=== PATIENT | female | born 1975 | race Two or more races ===

== ENCOUNTER 2020-09-04 20:21 | Emergency (ER) | payer OTHER ==
[2020-09-04] MEDS ORDERED: Dextrose 5%-Lactated Ringers 1,000 ML IV SCH (20:30)
[2020-09-04 21:03] LABS: BLOOD UREA NITROGEN,BUN 14 mg/dL (7.0-18.0); CARBON DIOXIDE,CO2 22.3 mmol/L (21.0-32.0); CHLORIDE,CL 105 mmol/L (98-107); GLUCOSE RANDOM 183 mg/dL (74-106); LIPASE 200 U/L (73-393); POTASSIUM,K 4.3 mmol/L (3.5-5.1); SODIUM,NA 140 mmol/L (136-145)
--- NOTE | 2020-09-04 23:04 | CR ---
For Patients: As a result of the Cures Act, medical imaging exams and procedure reports are released immediately into your electronic medical record. You may view this report before your referring provider. If you have questions, please contact your health care provider. INDICATION: Shortness of breath TECHNIQUE: Chest radiograph 1 view COMPARISON: None FINDINGS: Mediastinum: The mediastinum is normal in appearance. The heart silhouette is normal in size and morphology. Lung: Both lungs are unremarkable in appearance. No sign of pleural effusion seen. No pneumothorax is identified. Bone and Soft tissue: Unremarkable for age. IMPRESSION: 1. No acute cardiopulmonary disease is seen. Dictated by: Narendra Quintana MD @ 09/04/2020 23:03:18 (Electronically Signed)
--- NOTE | 2020-09-05 00:42 | EDM.PDOC ---
ED HPI GENERAL MEDICAL PROBLEM - General Chief Complaint: Neuro Symptoms/Deficits Stated Complaint: STROKE CODE Time Seen by Provider: 09/04/20 20:23 - History of Present Illness INITIAL COMMENTS - FREE TEXT/NARRATIVE: CHIEF COMPLAINT(S): Altered mental status HISTORY OF PRESENT ILLNESS: This is a 45-year-old woman with a past medical history of Bianca's granulomatosis who presents to the emergency department with a chief complaint of altered mental status. EMS: Per EMS they received a call to turkey picker this young lady after she was altered. They stated that when they got to the home that the home was hot and when they arrived she was clenched with her hands and legs and shaking. They state that she was alert at this time and did not look like a seizure. They stated there may have been some right upper and lower extremity weakness. They state that she has been vomiting since 1 PM and she had some sinus bradycardia episodes in route. Otherwise vitals were normal. The patient states that she is currently on a new medication called azathioprine that was started by her surgical technology instructor. She states that this was started approximately 1 week ago. She tried it for 2 days and every time she tried that she gets nausea, vomiting, and diarrhea. She states that she stopped taking it and then attempted to take it again yesterday where she again had nausea, vomiting and diarrhea. She states that when she does not take the medication she does not have any symptoms. She denies any history of hypertension, hyperlipidemia, CAD, CHF. She denied trouble walking, speaking, or swallowing. She denies any head injury or loss of consciousness. She denies any other symptoms at all. REVIEW OF SYSTEMS: Constitutional: Denies fever, chills. Eyes: Denies eye pain Ears, Nose, Mouth, & Throat: Denies earache Cardiovascular: Denies chest pain Respiratory: Denies shortness of breath Gastrointestinal: Positive for nausea, vomiting, diarrhea. Denies hematochezia, hematemesis, bilious emesis, abdominal pain Genitourinary: Denies hematuria, dysuria, vaginal bleeding, vaginal discharge Skin:Denies a rash Neurological: Denies blurred vision, head injury, loss of consciousness, numbness, tingling, weakness, trouble walking, trouble speaking, trouble swallowing Psychiatric: Denies depression PAST MEDICAL HISTORY: As per history of present illness and as reviewed below otherwise noncontributory. SURGICAL HISTORY: As per history of present illness and as reviewed below otherwise noncontributory. SOCIAL HISTORY: As per history of present illness and as reviewed below otherwise noncontributory. FAMILY HISTORY: As per history of present illness and as reviewed below otherwise noncontributory. EXAMINATION OF ORGAN SYSTEMS/BODY AREAS: VITALS: Blood pressure was 106/70, heart rate 68, respiratory rate 16 with oxygen saturation of 100% on room air. Temperature 36.9 GENERAL: The patient is well-nourished, well-developed, in no acute distress. HEAD: Normocephalic, atraumatic. EYES: EOMs intact. PERRL. ENT. External ears WNL. Nares patent. Oropharynx is clear with no erythema or exudate. No uvular or tongue swelling. Tongue protrudes midline. No uvular swelling. NECK: Supple, no masses. Trachea is midline. No stridor. LUNGS: No tachypnea or intercostal retractions. Clear to auscultation bilaterally, no wheezing, no rales, no stridor, no rhonchi. CARDIOVASCULAR: Regular rate and rhythm with S1-S2. No murmur, rubs or gallops. No edema. No JVD. ABDOMEN: Soft, non-distended, non-tender. Bowel sounds present in all 4 quadrants. No rebound tenderness, guarding, or peritoneal signs. MUSCULOSKELETAL: No deformity. Patient is moving all 4 limbs spontaneously. Patient is yennifer her upper and lower extremities bilaterally and shaking. Visually it appears like a dystonic reaction NEUROLOGICAL: Alert and oriented x 3. No focal neurological deficits noted. NIH of 0. Facies are symmetrical. Negative sellar signs. SKIN: No rashes, or pallor. No signs of injury. MEDICAL DECISION MAKING AND COURSE IN THE ED WITH INTERPRETATION/REVIEW OF DIAGNOSTIC STUDIES: This is a 45-year-old woman who presents to the emergency department via EMS initially as a stroke code. Immediately upon entering the resuscitation room the patient was disrobed, placed on continuous cardiac monitoring, and IV access was established by nursing. Patient is able to speak thus displaying a patent airway, breath sounds are equal bilaterally, and patient has palpable pulses in all 4 extremities. NIH was 0 patient had contractions of her upper and lower body which appeared like a dystonic reaction. She had no focal deficits to suggest a stroke at all. Therefore I canceled the stroke code. In route the ambulance provided her with Zofran and Benadryl. We did obtain an EKG which did not reveal any acute signs of ischemia. CT head or CT are not indicated at this time. We will obtain laboratory analysis including CBC, CMP, CRP, ESR, lactic acid, lipase, hCG, and urinalysis. We will obtain a chest x-ray. By the time my assessment has been completed the patient was sitting there comfortably and speaking in full sentences and was no longer shaking or yennifer. EKG was obtained which did not reveal any acute signs of ischemia. On review of Azothioprine side effects there are small amount of individuals who have hypersensitivity to this medication which results in severe nausea, vomiting and diarrhea. This is thought to be secondary to some type of allergic reaction. I contacted [facility] in [place] and spoke with Dr. Fan and discussed the case with him. He states that the medication is not the cause of the nausea vomiting or diarrhea. He recommended obtaining ESR and CRP to evaluate if there is any inflammatory markers for vasculitis. He did recommend CT head and CTA as he states that "I am not there so I do not see the patient" I did discuss my discussion with the patient and her at bedside. At this time the patient is altered, does not have any fever, has no focal neurological deficits, no neck stiffness, no meningeal signs is alert and oriented x4.in discussion with the patient at this time I do not believe CT head or CTA are indicated and definitely not a lumbar puncture. We will obtain inflammatory markers to evaluate for vasculitis or signs of vasculitis. The patient is amenable to this plan. Laboratory: CBC reveals a leukocytosis of 19.38 with neutrophilic predominance and thrombocytosis with a platelet count of 433. CMP reveals hyperglycemia at 193 otherwise unremarkable. ESR and CRP are normal. Lipase is normal. hCG is negative. Lactic acidosis of 3.0. Urinalysis was a clean catch and was negative for leukocyte esterase, negative for nitrites, and negative for blood. Ketones interpretation: Ketonuria The radiological images were viewed by myself along with reading the report from the radiologist. Chest x-ray did not reveal an acute cardiopulmonary process. On continued reevaluation the patient's vitals continue to remain stable and she is alert and oriented x4 without any focal deficits. I did discuss with her that I would like to obtain a repeat lactic acid given that it was mildly elevated. She was amenable to this plan. 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 Lactic acid repeat was 1.7. The patient was ambulatory in the emergency department and more ready to be discharged. The patient requested a different surgical technology instructor. I did discuss with her at this time that I do not know any but I recommend following up with her primary care physician to get a referral to a different surgical technology instructor. Given that she is having a reaction to this medication so severely I did discuss with her that she should refrain from this medication and follow-up with her primary care soon as possible. She was amenable to discharge at this time and had no further questions. They were given strict return precautions. DISPOSITION: The patient was discharged home in stable condition. CONDITION: Fair FINAL IMPRESSION(S)/DIAGNOSES: 1. Acute dystonic reaction, resolved 2. Acute dehydration likely secondary to diarrhea/vomiting 3. Acute lactic acidosis likely secondary to #1 and #2 4. Acute leukocytosis likely secondary to recent steroid use - Related Data Allergies Allergy/AdvReac Type Severity Reaction Status Date / Time No Known Allergies Allergy Verified 09/04/20 20:35 Social & Family History - Tobacco Use Tobacco Use Status *Q: Never Tobacco User Second Hand Smoke Exposure: No - Caffeine Use Caffeine Use: Reports: None - Recreational Drug Use Recreational Drug Use: No ED ROS GENERAL - Review of Systems Review Of Systems: See Below ED EXAM, GENERAL - Physical Exam Exam: See Below Course - Vital Signs Last Recorded V/S: Last Vital Signs Temp 36.9 C 09/04/20 20:21 Pulse 83 09/04/20 21:25 Resp 14 09/04/20 21:25 BP 103/60 09/04/20 21:25 Pulse Ox 99 09/04/20 21:25 - Orders/Labs/Meds Labs: Laboratory Tests 09/04/20 09/04/20 09/04/20 Range/Units 20:32 20:32 20:32 WBC 19.38 H (4.0-11.0) K/uL RBC 4.83 (4.30-5.90) M/uL Hgb 14.7 (12.0-16.0) g/dL Hct 42.5 (36.0-46.0) % MCV 88.0 (80.0-98.0) fL MCH 30.4 (27.0-32.0) pg MCHC 34.6 (31.0-37.0) g/dL RDW Std Deviation 46.8 (28.0-62.0) fl RDW Coeff of Benito 15 (11.0-15.0) % Plt Count 433 H (150-400) K/uL MPV 10.60 (7.40-12.00) fL Neut % (Auto) 86.3 H (48.0-80.0) % Lymph % (Auto) 5.8 L (16.0-40.0) % [place] % (Auto) 7.3 (0.0-15.0) % Eos % (Auto) 0.4 (0.0-7.0) % Baso % (Auto) 0.2 (0.0-1.5) % Neut # (Auto) 16.8 H (1.4-5.7) K/uL Lymph # (Auto) 1.1 (0.6-2.4) K/uL [place] # (Auto) 1.4 H (0.0-0.8) K/uL Eos # (Auto) 0.1 (0.0-0.7) K/uL Baso # (Auto) 0.0 (0.0-0.1) K/uL Nucleated RBC % 0.0 /100WBC Nucleated RBCs # 0 K/uL ESR (0-19) mm/hr Sodium 140 (136-145) mmol/L Potassium 4.3 (3.5-5.1) mmol/L Chloride 105 (98-107) mmol/L Carbon Dioxide 22.3 (21.0-32.0) mmol/L BUN 14 (7.0-18.0) mg/dL Creatinine 0.9 (0.6-1.0) mg/dL Est Cr Clr Drug Dosing TNP Estimated GFR (MDRD) > 60.0 ml/min Glucose 183 H (74-106) mg/dL Lactic Acid 3.0 H* (0.4-2.0) mmol/L Calcium 8.7 (8.5-10.1) mg/dL Magnesium 1.9 (1.8-2.4) mg/dL Total Bilirubin 0.4 (0.2-1.0) mg/dL AST 20 (15-37) IU/L ALT 43 (14-63) IU/L Alkaline Phosphatase 73 (46-116) U/L Creatine Kinase 40 (26-308) U/L C-Reactive Protein (0.00-0.90) mg/dL Total Protein 7.5 (6.4-8.2) g/dL Albumin 3.9 (3.4-5.0) g/dL Globulin 3.6 (2.6-4.0) g/dL Albumin/Globulin Ratio 1.1 (0.9-1.6) Lipase 200 (73-393) U/L HCG, Qual (NEG) Urine Color Urine Appearance Urine pH (5.0-8.0) Ur Specific [place] (1.001-1.035) Urine Protein (NEGATIVE) mg/dL Urine Glucose (UA) (NEGATIVE) mg/dL Urine Ketones (NEGATIVE) mg/dL Urine Occult Blood (NEGATIVE) Urine Nitrite (NEGATIVE) Urine Bilirubin (NEGATIVE) Urine Urobilinogen (<2.0) EU/dL Ur Leukocyte Esterase (NEGATIVE) 09/04/20 09/04/20 09/04/20 Range/Units 20:32 20:32 20:32 WBC (4.0-11.0) K/uL RBC (4.30-5.90) M/uL Hgb (12.0-16.0) g/dL Hct (36.0-46.0) % MCV (80.0-98.0) fL MCH (27.0-32.0) pg MCHC (31.0-37.0) g/dL RDW Std Deviation (28.0-62.0) fl RDW Coeff of Benito (11.0-15.0) % Plt Count (150-400) K/uL MPV (7.40-12.00) fL Neut % (Auto) (48.0-80.0) % Lymph % (Auto) (16.0-40.0) % [place] % (Auto) (0.0-15.0) % Eos % (Auto) (0.0-7.0) % Baso % (Auto) (0.0-1.5) % Neut # (Auto) (1.4-5.7) K/uL Lymph # (Auto) (0.6-2.4) K/uL [place] # (Auto) (0.0-0.8) K/uL Eos # (Auto) (0.0-0.7) K/uL Baso # (Auto) (0.0-0.1) K/uL Nucleated RBC % /100WBC Nucleated RBCs # K/uL ESR 9 (0-19) mm/hr Sodium (136-145) mmol/L Potassium (3.5-5.1) mmol/L Chloride (98-107) mmol/L Carbon Dioxide (21.0-32.0) mmol/L BUN (7.0-18.0) mg/dL Creatinine (0.6-1.0) mg/dL Est Cr Clr Drug Dosing Estimated GFR (MDRD) ml/min Glucose (74-106) mg/dL Lactic Acid (0.4-2.0) mmol/L Calcium (8.5-10.1) mg/dL Magnesium (1.8-2.4) mg/dL Total Bilirubin (0.2-1.0) mg/dL AST (15-37) IU/L ALT (14-63) IU/L Alkaline Phosphatase (46-116) U/L Creatine Kinase (26-308) U/L C-Reactive Protein < 0.20 (0.00-0.90) mg/dL Total Protein (6.4-8.2) g/dL Albumin (3.4-5.0) g/dL Globulin (2.6-4.0) g/dL Albumin/Globulin Ratio (0.9-1.6) Lipase (73-393) U/L HCG, Qual NEGATIVE (NEG) Urine Color Urine Appearance Urine pH (5.0-8.0) Ur Specific [place] (1.001-1.035) Urine Protein (NEGATIVE) mg/dL Urine Glucose (UA) (NEGATIVE) mg/dL Urine Ketones (NEGATIVE) mg/dL Urine Occult Blood (NEGATIVE) Urine Nitrite (NEGATIVE) Urine Bilirubin (NEGATIVE) Urine Urobilinogen (<2.0) EU/dL Ur Leukocyte Esterase (NEGATIVE) 09/04/20 09/04/20 Range/Units 23:35 23:53 WBC (4.0-11.0) K/uL RBC (4.30-5.90) M/uL Hgb (12.0-16.0) g/dL Hct (36.0-46.0) % MCV (80.0-98.0) fL MCH (27.0-32.0) pg MCHC (31.0-37.0) g/dL RDW Std Deviation (28.0-62.0) fl RDW Coeff of Benito (11.0-15.0) % Plt Count (150-400) K/uL MPV (7.40-12.00) fL Neut % (Auto) (48.0-80.0) % Lymph % (Auto) (16.0-40.0) % [place] % (Auto) (0.0-15.0) % Eos % (Auto) (0.0-7.0) % Baso % (Auto) (0.0-1.5) % Neut # (Auto) (1.4-5.7) K/uL Lymph # (Auto) (0.6-2.4) K/uL [place] # (Auto) (0.0-0.8) K/uL Eos # (Auto) (0.0-0.7) K/uL Baso # (Auto) (0.0-0.1) K/uL Nucleated RBC % /100WBC Nucleated RBCs # K/uL ESR (0-19) mm/hr Sodium (136-145) mmol/L Potassium (3.5-5.1) mmol/L Chloride (98-107) mmol/L Carbon Dioxide (21.0-32.0) mmol/L BUN (7.0-18.0) mg/dL Creatinine (0.6-1.0) mg/dL Est Cr Clr Drug Dosing Estimated GFR (MDRD) ml/min Glucose (74-106) mg/dL Lactic Acid 1.7 (0.4-2.0) mmol/L Calcium (8.5-10.1) mg/dL Magnesium (1.8-2.4) mg/dL Total Bilirubin (0.2-1.0) mg/dL AST (15-37) IU/L ALT (14-63) IU/L Alkaline Phosphatase (46-116) U/L Creatine Kinase (26-308) U/L C-Reactive Protein (0.00-0.90) mg/dL Total Protein (6.4-8.2) g/dL Albumin (3.4-5.0) g/dL Globulin (2.6-4.0) g/dL Albumin/Globulin Ratio (0.9-1.6) Lipase (73-393) U/L HCG, Qual (NEG) Urine Color YELLOW Urine Appearance CLEAR Urine pH 7.5 (5.0-8.0) Ur Specific [place] 1.015 (1.001-1.035) Urine Protein NEGATIVE (NEGATIVE) mg/dL Urine Glucose (UA) 500 H (NEGATIVE) mg/dL Urine Ketones TRACE H (NEGATIVE) mg/dL Urine Occult Blood NEGATIVE (NEGATIVE) Urine Nitrite NEGATIVE (NEGATIVE) Urine Bilirubin NEGATIVE (NEGATIVE) Urine Urobilinogen 0.2 (<2.0) EU/dL Ur Leukocyte Esterase NEGATIVE (NEGATIVE) Meds: Medications Discontinued Medications Generic Name Dose Route Start Last Admin Trade Name Freq PRN Reason Stop Dose Admin Dextrose/Lactated Ringer's 1,000 mls @ 999 mls/hr 09/04/20 20:30 09/04/20 20:59 Dextrose 5%-Lactated Ringers IV 999 mls/hr ASDIRECTED RICKI Administration Departure - Departure Time of Disposition: 00:40 Disposition: Home, Self-Care 01 Condition: Fair Clinical Impression: Dehydration, Vomiting, Diarrhea, Medication side effect - Discharge Information *PRESCRIPTION DRUG MONITORING PROGRAM REVIEWED*: No *COPY OF PRESCRIPTION DRUG MONITORING REPORT IN PATIENT CINDI: No Instructions: Diarrhea, Adult, Food Choices to Help Relieve Diarrhea, Adult, Nausea and Vomiting, Adult Referrals: PCP,Not In Area [Primary Care Provider] - Forms: ED Department Discharge Additional Instructions: You were evaluated today on an emergent basis. At this time we did give you some fluids and in EMS they gave you Benadryl and antinausea medication. During your work-up your white blood cell count was elevated above normal but she did not have any signs of infection. As discussed with your surgical technology instructor he stated we should consider meningitis or encephalitis however you are acting normally without any fever, neck pain, or any abnormality at all. Your chest x- ray was normal. I do believe your symptoms are due to the azathioprine you are taking. If you have any worsening symptoms I recommend you follow-up in the emergency department. Otherwise please follow-up with your primary care physician for referral to new surgical technology instructor. [facility] [address] [place] [address] [facility] [address] [place] [address] The patient is informed of any results of their evaluation and diagnostic workup and all questions are answered. They are given discharge instructions and return precautions. The patient is stable for discharge. The patient states they understand and agree with the plan and that they will return if their symptoms get worse or if they have any new concerns. The following information is given to patients seen in the emergency department who are being discharged to home. This information is to outline your options for follow-up care. We provide all patients seen in our emergency department with a follow-up referral. The need for follow-up, as well as the timing and circumstances, are variable depending upon the specifics of your emergency department visit. If you don't have a primary care physician on staff, we will provide you with a referral. We always advise you to contact your personal physician following an emergency department visit to inform them of the circumstance of the visit and for follow-up with them and/or the need for any referrals to a consulting specialist. The emergency department will also refer you to a specialist when appropriate. This referral assures that you have the opportunity for follow-up care with a specialist. All of these measure are taken in an effort to provide you with optimal care, which includes your follow-up. Under all circumstances we always encourage you to contact your private physician who remains a resource for coordinating your care. When calling for follow-up care, please make the office aware that this follow-up is from your recent emergency room visit. If for any reason you are refused follow-up, please contact the [facility] Emergency Department at and asked to speak to the emergency department charge nurse. Sepsis Event Note (ED) - Evaluation Sepsis Screening Result: No Definite Risk
--- NOTE | 2020-09-05 07:32 | PCM.EKG ---
#1 Interpretation EKG Date: 09/04/20 Time: 20:52 Rhythm: NSR Rate (Beats/Min): 66 [place]: Normal P-Wave: Present QRS: Normal ST-T: Normal QT: Normal Comparison: NA - No Prior EKG EKG Interpretation Comments: Sinus Rhythm
== END 2020-09-05 00:50 | disposition home or self-care (01) ==
LOC: MW.ED 20:21
DX: E86.0 Dehydration (principal); E87.2 Acidosis; D72.829 Elevated white blood cell count, unspecified; G24.02 Drug induced acute dystonia; T45.1X5A Adverse effect of antineoplastic and immunosuppressive drugs, initial encounter; R19.7 Diarrhea, unspecified
CPT/HCPCS: 36415; 71045; 80053; 81003; 82550; 83605; 83690; 83735; 84703; 85025; 85652; 86140; 93005; 99285; J7121; 99284

== ENCOUNTER 2021-01-26 06:13 | Day surgery (SDC) | payer OTHER ==
[2021-01-26] MEDS ORDERED: Dexamethasone 4 MG/ML 5 ML MDV ONE (07:06)
[2021-01-26] MEDS ORDERED: Propofol 200 MG/20 ML SDV ONE ×2 (07:06→07:35)
[2021-01-26] MEDS ORDERED: fentaNYL 100 MCG/2 ML SDV ONE (07:06)
[2021-01-26] MEDS ORDERED: Dexmedetomidine 200 MCG/2 ML SDV ONE (07:06)
[2021-01-26] MEDS ORDERED: Midazolam 1 MG/ML 2 ML SDV ONE (07:06)
[2021-01-26] MEDS ORDERED: Water For Injection, Sterile 20 ML ONE (07:09)
--- NOTE | 2021-01-26 07:33 | PCM.PREANE ---
Preanesthetic Assessment - Anesthesia/Transfusion/Family Hx Anesthesia History: No Prior Anesthesia Transfusion History: No Prior Transfusion(s) - Review of Systems General: No Symptoms Pulmonary: No Symptoms Cardiovascular: No Symptoms Gastrointestinal: No Symptoms Neurological: No Symptoms Other: Reports: None - Physical Assessment NPO Status Date: 01/26/21 NPO Status Time: 00:00 Vital Signs: Last Vital Signs Temp 97.5 F 01/26/21 06:30 Pulse 55 L 01/26/21 06:30 Resp 14 01/26/21 06:30 BP 115/68 01/26/21 06:30 Pulse Ox 97 01/26/21 06:30 Height: 5 ft 4 in Weight: 148 lb Mental Status: Alert & Oriented x3 Airway Class: Mallampati = 2 Dentition: Reports: Normal Dentition ROM/Head Extension: Full Lungs: Clear to Auscultation, Normal Respiratory Effort Cardiovascular: Regular Rate, Regular Rhythm - Lab Values: Laboratory Last Values WBC 9.55 K/uL (4.0-11.0) 01/26/21 06:30 RBC 4.33 M/uL (4.30-5.90) 01/26/21 06:30 Hgb 12.9 g/dL (12.0-16.0) 01/26/21 06:30 Hct 38.1 % (36.0-46.0) 01/26/21 06:30 MCV 88.0 fL (80.0-98.0) 01/26/21 06:30 MCH 29.8 pg (27.0-32.0) 01/26/21 06:30 MCHC 33.9 g/dL (31.0-37.0) 01/26/21 06:30 RDW Std Deviation 49.0 fl (28.0-62.0) 01/26/21 06:30 RDW Coeff of Benito 15 % (11.0-15.0) 01/26/21 06:30 Plt Count 432 K/uL (150-400) H 01/26/21 06:30 MPV 10.20 fL (7.40-12.00) 01/26/21 06:30 Neut % (Auto) 61.8 % (48.0-80.0) 01/26/21 06:30 Lymph % (Auto) 26.7 % (16.0-40.0) 01/26/21 06:30 [place] % (Auto) 10.7 % (0.0-15.0) 01/26/21 06:30 Eos % (Auto) 0.6 % (0.0-7.0) 01/26/21 06:30 Baso % (Auto) 0.2 % (0.0-1.5) 01/26/21 06:30 Neut # (Auto) 5.9 K/uL (1.4-5.7) H 01/26/21 06:30 Lymph # (Auto) 2.6 K/uL (0.6-2.4) H 01/26/21 06:30 [place] # (Auto) 1.0 K/uL (0.0-0.8) H 01/26/21 06:30 Eos # (Auto) 0.1 K/uL (0.0-0.7) 01/26/21 06:30 Baso # (Auto) 0.0 K/uL (0.0-0.1) 01/26/21 06:30 Nucleated RBC % 0.0 /100WBC 01/26/21 06:30 Nucleated RBCs # 0 K/uL 01/26/21 06:30 HCG, Qual NEGATIVE (NEG) 01/26/21 06:30 - Allergies Allergies/Adverse Reactions: Allergies Allergy/AdvReac Type Severity Reaction Status Date / Time azathioprine Allergy Diarrhea Verified 01/22/21 09:16 - Acknowledgements Anesthesia Type Planned: General Anesthesia Pt an Appropriate Candidate for the Planned Anesthesia: Yes Alternatives and Risks of Anesthesia Discussed w Pt/Guardian: Yes Pt/Guardian Understands and Agrees with Anesthesia Plan: Yes PreAnesthesia Questionnaire - Past Health History Medical/Surgical History: Denies Medical/Surgical History HEENT History: Reports: Other (See Below) Other HEENT History: wears glasses, 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 Cardiovascular History: Reports: None Respiratory History: Reports: None Gastrointestinal History: Reports: None Genitourinary History: Reports: None GARMENT ALTERATION EXAMINER History: Reports: None Musculoskeletal History: Reports: None Neurological History: Reports: None Psychiatric History: Reports: None Endocrine/Metabolic History: Reports: None Hematologic History: Reports: None Immunologic History: Reports: Immunosuppression Oncologic (Cancer) History: Reports: None Dermatologic History: Reports: None - Past Surgical History Head Surgeries/Procedures: Reports: None - SUBSTANCE USE Tobacco Use Status *Q: Never Tobacco User Recreational Drug Use History: No - HOME MEDS Home Medications: Home Meds Folic Acid 1 mg PO DAILY 01/22/21 [History] Methotrexate 10 mg PO WEEKLY 01/22/21 [History] predniSONE [Prednisone] 5 mg PO BID 01/22/21 [History] - CURRENT (IN HOUSE) MEDS Current Meds: Current Medications Discontinued Medications Dexamethasone (Dexamethasone 4 Mg/Ml 5 Ml Mdv) Confirm Administered Dose 20 mg .ROUTE .STK-MED ONE Stop: 01/26/21 07:07 Dexmedetomidine HCl (Dexmedetomidine 200 Mcg/2 Ml Sdv) Confirm Administered Dose 200 mcg .ROUTE .STK-MED ONE Stop: 01/26/21 07:07 Fentanyl (Fentanyl 100 Mcg/2 Ml Sdv) Confirm Administered Dose 100 mcg .ROUTE .STK-MED ONE Stop: 01/26/21 07:07 Sterile Water (Sterile Water For Injection) Confirm Administered Dose 20 mls @ as directed .ROUTE .STK-MED ONE Stop: 01/26/21 07:10 Lidocaine HCl (Lidocaine 1% 5 Ml Sdv) Confirm Administered Dose 5 ml .ROUTE .STK-MED ONE Stop: 01/26/21 07:07 Midazolam HCl (Midazolam 1 Mg/Ml 2 Ml Sdv) Confirm Administered Dose 2 mg .ROUTE .STK-MED ONE Stop: 01/26/21 07:07 Propofol (Propofol 200 Mg/20 Ml Sdv) Confirm Administered Dose 200 mg .ROUTE .STK-MED ONE Stop: 01/26/21 07:07
[2021-01-26] MEDS ORDERED: Ketorolac 30 MG/ML SDV ONE (07:34)
[2021-01-26] MEDS ORDERED: Metoclopramide 10 MG/2 ML SDV IVPUSH PRN (07:35)
[2021-01-26] MEDS ORDERED: HYDROmorphone 1 MG/ML Syringe IVPUSH PRN (07:35)
[2021-01-26] MEDS ORDERED: Morphine 2 MG/ML SYRINGE IVPUSH PRN (07:35)
[2021-01-26] MEDS ORDERED: Ondansetron 4 MG/2 ML SDV IVPUSH PRN (07:35)
[2021-01-26] MEDS ORDERED: Albuterol 0.083% 2.5 MG/3 ML Neb Soln NEB PRN (07:35)
[2021-01-26] MEDS ORDERED: fentaNYL 100 MCG/2 ML SDV IVPUSH PRN (07:35)
[2021-01-26] MEDS ORDERED: Naloxone 0.4 MG/ML SDV IVPUSH PRN (07:35)
[2021-01-26] MEDS ORDERED: ePHEDrine 50 MG/ML SDV ONE (07:50)
[2021-01-26] MEDS ORDERED: Acetaminophen/HYDROcodone 325-5 MG Tab PO PRN (08:30)
--- NOTE | 2021-01-26 08:30 | PCM.POSTAN ---
POST ANESTHESIA ASSESSMENT - MENTAL STATUS Mental Status: Alert, Oriented - VITAL SIGNS Vital Signs: Last Vital Signs Temp 36.4 C 01/26/21 06:30 Pulse 55 L 01/26/21 06:30 Resp 14 01/26/21 06:30 BP 115/68 01/26/21 06:30 Pulse Ox 97 01/26/21 06:30 - RESPIRATORY Respiratory Status: Respiratory Rate WNL, Airway Patent, O2 Saturation Stable - CARDIOVASCULAR CV Status: Pulse Rate WNL, Blood Pressure Stable - GASTROINTESTINAL GI Status: No Symptoms - POST OP HYDRATION Hydration Status: Adequate & Stable
--- NOTE | 2021-01-26 08:32 | PCM48HPAN ---
Post Anesthesia Note - EVALUATION WITHIN 48HRS OF ANESTHETIC Vital Signs in Normal Range: Yes Patient Participated in Evaluation: Yes Respiratory Function Stable: Yes Airway Patent: Yes Cardiovascular Function Stable: Yes Hydration Status Stable: Yes Pain Control Satisfactory: Yes Nausea and Vomiting Control Satisfactory: Yes Mental Status Recovered: Yes Vital Signs: Last Vital Signs Temp 36.4 C 01/26/21 06:30 Pulse 55 L 01/26/21 06:30 Resp 14 01/26/21 06:30 BP 115/68 01/26/21 06:30 Pulse Ox 97 01/26/21 06:30
--- NOTE | 2021-01-26 08:35 | PCM.OPNOTE ---
- General Post-Op/Procedure Note Date of Surgery/Procedure: 01/26/21 Operative Procedure(s): Hysteroscopy, dilation & curettage Findings: Normal-appearing cervix, stenotic internal os Pre Op Diagnosis: 45yo with abnormal uterine bleeding and endometrial polyp Post-Op Diagnosis: Same Anesthesia Technique: General LMA Primary Surgeon: Carol Soriano Anesthesia Provider: Osiel Gallardo Pathology: Endometrial curettings Fluid Replacement, Intraop: 1,000 EBL in mLs: 20 Complications: Perforation of uterus with cervical dilators, confirmed with hysteroscopy, procedure aborted Condition: Good Free Text/Narrative:: Hysteroscopic fluid deficit 600cc NS
--- NOTE | 2021-01-26 10:06 | OR ---
SURGEON: Carol Soriano MD DATE OF PROCEDURE: 01/26/2021 PREOPERATIVE DIAGNOSIS: 45-year-old with abnormal uterine bleeding and endometrial polyp on outpatient biopsy. POSTOPERATIVE DIAGNOSIS: 45-year-old with abnormal uterine bleeding and endometrial polyp on outpatient biopsy. PROCEDURE: Diagnostic hysteroscopy with dilation and curettage. PRIMARY SURGEON: Carol Soriano MD ANESTHESIA: General LMA. ESTIMATED BLOOD LOSS: 20 mL. IV FLUIDS: 1 liter of LR. HYSTEROSCOPIC FLUID DEFICIT: 600 mL of normal saline. SPECIMEN: Endometrial curettings. COMPLICATIONS: Perforation of the uterus with the cervical dilators and hysteroscope, procedure aborted at that time. FINDINGS: Exam under anesthesia revealed a normal-sized anteverted uterus with normal contour and normal bilateral adnexa. DESCRIPTION OF PROCEDURE: The patient was taken to the operating room where general LMA was obtained without difficulty. She was placed in dorsal lithotomy position with legs in Yellofin stirrups. She was prepared and draped in normal sterile fashion. An exam under anesthesia revealed normal anteverted uterus. A Graves speculum was inserted into the vagina. The anterior lip of the cervix was grasped with an Allis clamp. The uterus was initially sounded to 4 cm, however, this was felt to not be passed the internal cervical os. The cervical dilators were used to sequentially dilate to accommodate the 7 mm hysteroscope. At this time, the uterus was sounded to 5 cm and the internal os was still felt to not be passed. The 7 mm 30-degree hysteroscope was introduced under direct visualization and cervical canal and uterus were distended with normal saline. Bilateral tubal ostia were not visualized, there appeared to be a band of tissue obstructing the view of the fundus. The hysteroscope was withdrawn and a small curette was introduced to obtain sampling of the endometrium and this band of tissue. Hysteroscope was then reintroduced and still felt to not be passed the internal cervical os with good visualization of the uterine fundus and endometrial canal. Hysteroscope was withdrawn again. The cervical dilators were used to continue to attempt to dilate the cervix and at this point in time it was felt as though the internal cervical os was passed. The uterus was sounded to 10 cm at this point in time. The hysteroscope was introduced for a third time and followed the path of the cervical dilators. Fatty tissue consistent with omentum was noted and this was consistent with the uterine perforation. The hysteroscope was withdrawn and the procedure was aborted at this time. All instruments were removed from the abdomen. As the uterine perforation occurred with the cervical dilators and the hysteroscope, no further surgery was performed to evaluate for injury. The patient tolerated the procedure well. All sponge and instrument counts were correct x2. The patient was awakened and taken to the recovery room in stable condition. The surgical complications were reviewed with the patient's and warning signs were reviewed. [id number] / MODL /[id number] MTDD
== END 2021-01-26 09:40 | disposition home or self-care (01) ==
LOC: MW.SDS 06:13
PROVIDERS: ATTEND Obstetrics & Gynecology
DX: N84.0 Polyp of corpus uteri (principal); Z79.899 Other long term (current) drug therapy; Z88.8 Allergy status to other drugs, medicaments and biological substances
CPT/HCPCS: 36415; 58558; 84703; 85025; J0131; J1100; J1885; J2250; J2704; 00952; J3010